=== PATIENT | female | born 1985 | race Caucasian/White ===

== ENCOUNTER → 2018-06-24 | Outpatient (CLI) | payer MEDICARE ==
[~2018-06-24] MED LIST: ARIP10TA33 PO; CYAN10002 IM; CYCL-259 PO; GABA300C10 PO; LITH600C PO; MELA10TA PO; PROP20TA PO; SUMA50TA3 PO
[2018-06-24 11:55] LABS: BASOPHILS # (AUTO) 0.04 x10^3/uL (0-0.1); BASOPHILS % (AUTO) 1 % (0-1); EOSINOPHILS # (AUTO) 0.17 x10^3/uL (0-0.4); EOSINOPHILS % (AUTO) 2 % (1-7); LYMPHOCYTES % (AUTO) 25 % (22-44); MD NO; MEAN CORPUSCULAR HEMOGLOBIN 28.9 pg (27.0-34.8); MEAN CORPUSCULAR HGB CONC 32.8 g/dL (32.4-35.8); MEAN PLATELET VOLUME 9.5 fL (7.4-10.4); MONOCYTES # (AUTO) 0.44 x10^3/uL (0.2-0.8); MONOCYTES % (AUTO) 6 % (2-9); NEUTROPHILS # (AUTO) 5.06 x10^3/uL (1.8-6.8); NEUTROPHILS % (AUTO) 67 % (42-75); PLATELET COUNT 319 x10^3/uL (130-400); RED BLOOD COUNT 4.46 x10^6/uL (3.82-5.3); RED CELL DISTRIBUTION WIDTH 16.3 % (9.6-15.2)
[2018-06-24 12:02] LABS: ALBUMIN 3.8 g/dL (3.4-5.0); ANION GAP 5 mmol/L (5-15); CHLORIDE 114 mmol/L (98-107)
[2018-06-24 12:04] LABS: INTERNATIONAL NORMALIZED RATIO 0.89 (0.93-1.1); PROTHROMBIN TIME 9.3 Seconds (9.6-11.5)
[2018-06-24 12:06] LABS: ALANINE AMINOTRANSFERASE 117 U/L (12-78); ALKALINE PHOSPHATASE 141 U/L (45-117); BILIRUBIN,TOTAL 0.4 mg/dL (0.2-1.0); CREATININE 0.87 mg/dL (0.55-1.02); TOTAL PROTEIN 7.3 g/dL (6.4-8.2)
== END | disposition home or self-care (01) ==
LOC: STAR 10:20
PROVIDERS: ATTEND Specialist
DX: Z01.818 Encounter for other preprocedural examination (principal); D07.1 Carcinoma in situ of vulva; R79.1 Abnormal coagulation profile
CPT/HCPCS: 36415; 80053; 85025; 85610; 85730

== ENCOUNTER 2018-07-04 05:43 | Day surgery (SDC) | payer MEDICARE ==
[~2018-07-04] VITALS: Ht 167.6 cm; Wt 103.0 kg
[2018-07-04] MEDS ORDERED: LACTATED RINGERS 1,000 ML IV SCH (06:17)
[2018-07-04] MEDS ORDERED: FENTANYL PF 100 MCG/2ML ONE ×2 (07:14→07:57)
[2018-07-04] MEDS ORDERED: MIDAZOLAM 1 MG/ML, 2ML ONE (07:14)
[2018-07-04] MEDS ORDERED: LIDOCAINE GEL 2%, 5ML ONE (07:16)
[2018-07-04] MEDS ORDERED: SILVER SULF. CRM 1% , 25GM ONE (07:16)
[2018-07-04] MEDS ORDERED: BUPIVACAINE/PF-EPI 0.5% 1:200K ONE (07:16)
[2018-07-04] MEDS ORDERED: GLYCOPYRROLATE 0.2MG/1ML, 5ML ONE (07:28)
[2018-07-04] MEDS ORDERED: MEPERIDINE/PF 25MG/0.5ML IVPush PRN (07:30)
[2018-07-04] MEDS ORDERED: OXYcodone 5 MG/5 ML ORAL.SOL UDC PO PRN (07:30)
[2018-07-04] MEDS ORDERED: PROMETHAZINE 25 MG/ML, 1ML IV PRN (07:30)
[2018-07-04] MEDS ORDERED: LORazepam 2 MG/ML, 1ML IVPush PRN (07:30)
[2018-07-04] MEDS ORDERED: ONDANSETRON ODT 8 MG PO PRN (07:30)
[2018-07-04] MEDS ORDERED: FENTANYL PF 100 MCG/2ML IV PRN (07:30)
[2018-07-04] MEDS ORDERED: ACETAMINOPHEN 325 MG TABLET PO PRN (07:30)
[2018-07-04] MEDS ORDERED: ONDANSETRON 2MG/ML, 2ML IV PRN (07:30)
[2018-07-04] MEDS ORDERED: MORPHINE SULFATE 4 MG/ML, 1ML IVPush PRN (07:30)
[2018-07-04] MEDS ORDERED: PROPOFOL 10 MG/ML, 20ML ONE (08:12)
[2018-07-04] MEDS ORDERED: DEXAMETHASONE 4 MG/ML, 1ML ONE (08:12)
[2018-07-04] MEDS ORDERED: CEFAZOLIN 1,000 MG ONE (08:12)
[2018-07-04] MEDS ORDERED: ONDANSETRON 2MG/ML, 2ML ONE (08:12)
[2018-07-04] MEDS ORDERED: KETOROLAC 30 MG/1 ML ONE (08:29)
[2018-07-04] MEDS ORDERED: KETOROLAC 30 MG/1 ML IVPush STA (08:32)
[2018-07-04] MEDS ORDERED: KETOROLAC 30 MG/1 ML IVPush ONE (09:30)
[2018-07-04] MEDS ORDERED: OXYcodone/APAP 7.5/325MG TABLET ONE (10:12)
[2018-07-04] MEDS ORDERED: OXYcodone/APAP 7.5/325MG TABLET PO ONE (10:30)
== END 2018-07-04 10:40 | disposition home or self-care (01) ==
LOC: OR 05:43 → OUT 10:40
PROVIDERS: ATTEND Specialist
DX: D07.1 Carcinoma in situ of vulva (principal); Z98.84 Bariatric surgery status; Z90.49 Acquired absence of other specified parts of digestive tract; Z98.890 Other specified postprocedural states
CPT/HCPCS: 56620; 81025; 88305; J0690; J1100; J1885; J2250; J2405; J2704; J3010; J3490; J7120

== ENCOUNTER → 2019-02-09 | Outpatient (CLI) | payer MEDICARE ==
[~2019-02-09] MED LIST changes: +LITH300T3 PO; +TRAM-47 PO
[2019-02-09 12:48] LABS: BASOPHILS # (AUTO) 0.02 x10^3/uL (0-0.1); BASOPHILS % (AUTO) 0 % (0-1); EOSINOPHILS # (AUTO) 0.17 x10^3/uL (0-0.4); EOSINOPHILS % (AUTO) 3 % (1-7); LYMPHOCYTES # (AUTO) 2.25 x10^3/uL (1-3.4); LYMPHOCYTES % (AUTO) 34 % (22-44); MD NO; MEAN CORPUSCULAR HEMOGLOBIN 29.4 pg (27.0-34.8); MEAN CORPUSCULAR VOLUME 89.3 fL (80-100); MEAN PLATELET VOLUME 9.3 fL (7.4-10.4); MONOCYTES # (AUTO) 0.43 x10^3/uL (0.2-0.8); MONOCYTES % (AUTO) 7 % (2-9); NEUTROPHILS # (AUTO) 3.75 x10^3/uL (1.8-6.8); NEUTROPHILS % (AUTO) 57 % (42-75); PLATELET COUNT 325 x10^3/uL (130-400); RED BLOOD COUNT 4.46 x10^6/uL (3.82-5.3); RED CELL DISTRIBUTION WIDTH 13.9 % (9.6-15.2)
[2019-02-09 13:02] LABS: ALBUMIN 3.7 g/dL (3.4-5.0); ANION GAP 4 mmol/L (5-15); CALCIUM 8.8 mg/dL (8.5-10.1); CHLORIDE 114 mmol/L (98-107)
[2019-02-09 13:04] LABS: INTERNATIONAL NORMALIZED RATIO 0.93 (0.93-1.1); PROTHROMBIN TIME 9.8 Seconds (9.6-11.5)
[2019-02-09 13:05] LABS: ALANINE AMINOTRANSFERASE 46 U/L (12-78); ALKALINE PHOSPHATASE 109 U/L (45-117); BILIRUBIN,TOTAL 0.8 mg/dL (0.2-1.0); CREATININE 1.03 mg/dL (0.55-1.02); TOTAL PROTEIN 7.1 g/dL (6.4-8.2)
== END | disposition home or self-care (01) ==
LOC: STAR 11:30
PROVIDERS: ATTEND Specialist
DX: D07.1 Carcinoma in situ of vulva (principal)
CPT/HCPCS: 36415; 80053; 85025; 85610; 85730

== ENCOUNTER 2019-02-13 14:57 | Day surgery (SDC) | payer MEDICARE ==
[~2019-02-13] VITALS: Ht 167.6 cm; Wt 109.5 kg
[~2019-02-13 14:57] MED LIST changes: +BUPIVACAINE/PF 0.25% ONE; -TRAM-47 PO
[2019-02-13] MEDS ORDERED: LACTATED RINGERS 1,000 ML IV SCH (15:21)
[2019-02-13 15:27] VITALS: BP 120/81
[2019-02-13] MEDS ORDERED: LIDOCAINE-MPF 1%, 2ML INFIL ONE (15:30)
[2019-02-13 15:48] LABS: HCG UR SG 1.012 (1.003-1.030)
[2019-02-13] MEDS ORDERED: SCOPOLAMINE PATCH, 1.5MG PATCH.TD72 TD ONE ×2 (16:28→19:30)
[2019-02-13] MEDS ORDERED: BUPIVACAINE/PF 0.25% ONE (18:35)
[2019-02-13] MEDS ORDERED: EPINEPHRINE 1 MG/ML, 1ML ONE (18:35)
[2019-02-13] MEDS ORDERED: ACETAMINOPHEN 500 MG TABLET PO ONE (19:30)
[2019-02-13] MEDS ORDERED: GABAPENTIN 300 MG CAPSULE PO ONE (19:30)
[2019-02-13] MEDS ORDERED: FENTANYL PF 100 MCG/2ML ONE ×3 (20:09→21:49)
[2019-02-13] MEDS ORDERED: MIDAZOLAM 1 MG/ML, 2ML ONE (20:10)
[2019-02-13] MEDS ORDERED: SUCCINYLCHOLINE 20 MG/ML, 10ML ONE (20:10)
[2019-02-13] MEDS ORDERED: LIDOCAINE-MPF 2% ,5ML ONE (20:10)
[2019-02-13] MEDS ORDERED: PROPOFOL 10 MG/ML, 20ML ONE (20:10)
[2019-02-13] MEDS ORDERED: DEXAMETHASONE 4 MG/ML, 1ML ONE (20:47)
[2019-02-13] MEDS ORDERED: CEFAZOLIN 1,000 MG ONE (20:47)
[2019-02-13] MEDS ORDERED: ONDANSETRON 2MG/ML, 2ML ONE (20:47)
[2019-02-13] MEDS ORDERED: OXYcodone 5 MG/5 ML ORAL.SOL UDC PO PRN (21:30)
[2019-02-13] MEDS ORDERED: MEPERIDINE/PF 25MG/0.5ML IVPush PRN (21:30)
[2019-02-13] MEDS ORDERED: ONDANSETRON 2MG/ML, 2ML IV PRN (21:30)
[2019-02-13] MEDS ORDERED: LORazepam 2 MG/ML, 1ML IVPush PRN (21:30)
[2019-02-13] MEDS ORDERED: HYDROmorphone 2 MG/ML, 1ML IVPush PRN (21:30)
[2019-02-13] MEDS ORDERED: OXYcodone 5 MG/5 ML ORAL.SOL UDC ONE (21:49)
[2019-02-13] MEDS: FENTANYL PF 100 MCG/2ML IV PRN ×2 (21:55→22:15)
[2019-02-13] MEDS ORDERED: TRAM-47 PO (22:47)
== END 2019-02-13 23:50 | disposition home or self-care (01) ==
LOC: OR 14:57 → 4NOR 16:35 → OR 23:50
PROVIDERS: ATTEND Specialist
DX: D07.1 Carcinoma in situ of vulva (principal); G43.909 Migraine, unspecified, not intractable, without status migrainosus; F31.9 Bipolar disorder, unspecified; Z90.49 Acquired absence of other specified parts of digestive tract; Z98.890 Other specified postprocedural states; Z95.1 Presence of aortocoronary bypass graft
CPT/HCPCS: 56620; 81025; 88305; C1729; J0171; J0330; J0690; J1100; J2250; J2405; J2704; J3010; J3490; J7120; G0378

== ENCOUNTER 2020-03-18 05:19 | Day surgery (SDC) | payer MEDICARE, MEDICAID ==
[~2020-03-18] VITALS: Ht 167.6 cm; Wt 130.3 kg
[~2020-03-18 05:19] MED LIST changes: -BUPIVACAINE/PF 0.25% ONE; +TRAM-47 PO
[2020-03-18] MEDS ORDERED: LACTATED RINGERS 1,000 ML IV SCH (06:24)
[2020-03-18] MEDS ORDERED: CHLORHEXIDINE 15 ML UDC MM ONE (06:30)
[2020-03-18] MEDS ORDERED: CEFOTETAN PMX 2GM/50ML 50 ML IV ONE (06:30)
[2020-03-18 06:44] LABS: BASOPHILS # (AUTO) 0.04 x10^3/uL (0-0.1); BASOPHILS % (AUTO) 1 % (0-1); EOSINOPHILS # (AUTO) 0.11 x10^3/uL (0-0.4); EOSINOPHILS % (AUTO) 2 % (1-7); LYMPHOCYTES # (AUTO) 2.35 x10^3/uL (1-3.4); LYMPHOCYTES % (AUTO) 32 % (22-44); MD NO; MEAN CORPUSCULAR HEMOGLOBIN 25.1 pg (27.0-34.8); MEAN CORPUSCULAR HGB CONC 31.3 g/dL (32.4-35.8); MEAN PLATELET VOLUME 8.6 fL (7.4-10.4); MONOCYTES # (AUTO) 0.41 x10^3/uL (0.2-0.8); MONOCYTES % (AUTO) 6 % (2-9); NEUTROPHILS # (AUTO) 4.36 x10^3/uL (1.8-6.8); NEUTROPHILS % (AUTO) 60 % (42-75); PLATELET COUNT 415 x10^3/uL (130-400); RED BLOOD COUNT 4.45 x10^6/uL (3.82-5.3); RED CELL DISTRIBUTION WIDTH 17.1 % (9.6-15.2)
[2020-03-18 06:44] LABS: HCG UR SG 1.017 (1.003-1.030)
[2020-03-18 06:51] LABS: INTERNATIONAL NORMALIZED RATIO 0.9 (0.93-1.1); PROTHROMBIN TIME 9.5 Seconds (9.6-11.5)
[2020-03-18 06:54] LABS: ALANINE AMINOTRANSFERASE 21 U/L (12-78); ALBUMIN 3.8 g/dL (3.4-5.0); ANION GAP 4 mmol/L (5-15); CALCIUM 8.9 mg/dL (8.5-10.1); CHLORIDE 117 mmol/L (98-107); CREATININE 0.81 mg/dL (0.55-1.02)
[2020-03-18 06:57] LABS: ALKALINE PHOSPHATASE 83 U/L (45-117); BILIRUBIN,TOTAL 0.2 mg/dL (0.2-1.0); TOTAL PROTEIN 7.4 g/dL (6.4-8.2)
[2020-03-18] MEDS ORDERED: SILVER SULF. CRM 1% , 25GM ONE (07:02)
[2020-03-18] MEDS ORDERED: BUPIVACAINE/PF-EPI 0.25% 1:200K ONE (07:02)
[2020-03-18 07:09] VITALS: BP 120/85
[2020-03-18] MEDS ORDERED: APREPITANT 40 MG CAPSULE ONE (07:16)
[2020-03-18] MEDS ORDERED: PROPOFOL 10 MG/ML, 20ML ONE (07:20)
[2020-03-18] MEDS ORDERED: SUGAMMADEX 200 MG/2 ML IVPush ONE (07:20)
[2020-03-18] MEDS ORDERED: SUCCINYLCHOLINE 20 MG/ML, 10ML ONE (07:20)
[2020-03-18] MEDS ORDERED: ROCURONIUM 10MG/ML,5ML ONE ×2 (07:20→08:09)
[2020-03-18] MEDS ORDERED: APREPITANT 40 MG CAPSULE PO ONE (07:30)
[2020-03-18] MEDS ORDERED: MIDAZOLAM 1 MG/ML, 2ML ONE (07:47)
[2020-03-18] MEDS ORDERED: FENTANYL PF 100 MCG/2ML ONE ×3 (07:47→09:03)
[2020-03-18] MEDS ORDERED: PHENYLEPHRINE 10 MG/ML ONE (07:58)
[2020-03-18] MEDS ORDERED: EPHEDRINE 50 MG/ML, 1ML ONE (07:59)
[2020-03-18] MEDS ORDERED: BUPIVACAINE/PF-EPI 0.25% 1:200K INFIL ONE (08:37)
[2020-03-18] MEDS ORDERED: OXYcodone 5 MG/5 ML ORAL.SOL UDC ONE (09:03)
[2020-03-18] MEDS: FENTANYL PF 100 MCG/2ML IV PRN ×2 (09:10→09:20)
[2020-03-18] MEDS ORDERED: ACETAMINOPHEN 650 MG/20.3 ML UDC ONE (09:21)
[2020-03-18] MEDS ORDERED: morphine SULFATE 10 MG/ML, 1ML IVPush PRN (09:30)
[2020-03-18] MEDS ORDERED: HYDROcodone/APAP 7.5-325MG/15ML UDC PO PRN (09:30)
[2020-03-18] MEDS ORDERED: KETOROLAC 30 MG/1 ML IVPush PRN (09:30)
[2020-03-18] MEDS ORDERED: KETOROLAC 30 MG/1 ML IV PRN (09:30)
[2020-03-18] MEDS ORDERED: ACETAMINOPHEN 325 MG TABLET PO PRN (09:30)
[2020-03-18] MEDS ORDERED: HYDROmorphone 1 MG/ML, 1ML INJ IVPush PRN (09:30)
[2020-03-18] MEDS ORDERED: OXYcodone 5 MG/5 ML ORAL.SOL UDC PO PRN (09:30)
[2020-03-18] MEDS ORDERED: KETOROLAC 30 MG/1 ML IM PRN ×2 (09:30)
== END 2020-03-18 11:30 | disposition home or self-care (01) ==
LOC: OUT 05:19
PROVIDERS: ATTEND Specialist
DX: N90.1 Moderate vulvar dysplasia (principal); Z11.59 Encounter for screening for other viral diseases; F31.9 Bipolar disorder, unspecified; E66.01 Morbid (severe) obesity due to excess calories; G43.909 Migraine, unspecified, not intractable, without status migrainosus; Z68.42 Body mass index [BMI] 45.0-49.9, adult; Z79.01 Long term (current) use of anticoagulants; Z79.899 Other long term (current) drug therapy; Z87.442 Personal history of urinary calculi; Z98.51 Tubal ligation status; Z90.49 Acquired absence of other specified parts of digestive tract; Z98.84 Bariatric surgery status; Z98.890 Other specified postprocedural states
CPT/HCPCS: 11422; 12041; 36415; 80053; 81025; 85025; 85610; 85730; 86850; 86900; 87635; 88305; J0330; J2250; J2370; J2704; J3010; J3490; J7120; J8501